=== PATIENT | male | born 1960 | race Caucasian/White ===

== ENCOUNTER 2020-09-03 17:26 | Emergency (ER) | payer BC, OTHER ==
[~2020-09-03] VITALS: Ht 170.2 cm; Wt 77.1 kg
[2020-09-03 17:59] LABS: BASOPHILS # (AUTO) 0.1 (0.0-0.1); BASOPHILS % 0.6 % (0.0-1.0); EOSINOPHILS # (AUTO) 0.1 (0.0-0.4); EOSINOPHILS % 0.5 % (0.0-6.0); HEMOGLOBIN 15.3 g/dL (14.0-18.0); LYMPHOCYTES # (AUTO) 1.6 (1.0-3.2); LYMPHOCYTES % 15.1 % (18.0-39.1); MEAN CORPUSCULAR HEMOGLOBIN 29.9 pg (28-32); MEAN CORPUSCULAR HGB CONC 33.3 g/dL (31-35); MEAN CORPUSCULAR VOLUME 89.8 fL (81-99); MONOCYTES # (AUTO) 0.6 (0.2-0.8); MONOCYTES % 5.9 % (4.4-11.3); NEUTROPHILS # (AUTO) 8.3 (2.1-6.9); NEUTROPHILS % 77.2 % (38.7-80.0); PLATELET COUNT 296 x10e3/uL (140-360); RED BLOOD COUNT 5.12 x10e6/uL (4.3-5.7); RED CELL DISTRIBUTION WIDTH 11.8 % (11.7-14.4)
[2020-09-03 18:20] LABS: ALANINE AMINOTRANSFERASE 28 IU/L (0-55); ALBUMIN 4.2 g/dL (3.5-5.0); ALBUMIN/GLOBULIN RATIO 1.3 (0.8-2.0); ALKALINE PHOSPHATASE 64 IU/L (40-150); BLOOD UREA NITROGEN 19 mg/dL (7-26); BUN/CREATININE RATIO 17 (6-25); CALCIUM 9.1 mg/dL (8.4-10.2); CARBON DIOXIDE 26 mmol/L (22-29); CHLORIDE 100 mmol/L (98-107); CREATININE, SERUM 1.15 mg/dL (0.72-1.25); EST GLOMERULAR FILTRATION RATE > 60 ML/MIN (60-); GLUCOSE 185 mg/dL (74-118); SODIUM 139 mmol/L (136-145)
[2020-09-03 19:51] LABS: INR 1.24; PROTHROMBIN TIME 16.4 seconds (11.9-14.5)
[2020-09-03] MEDS ORDERED: ASPIRIN 81 MG CHEW TAB PO ONE (20:45)
[2020-09-03] MEDS ORDERED: ASPIRIN 81 MG CHEW TAB ONE (20:54)
== END 2020-09-03 22:24 | disposition home or self-care (01) ==
LOC: ER 17:58
DX: R07.9 Chest pain, unspecified (principal); E78.5 Hyperlipidemia, unspecified; D68.59 Other primary thrombophilia; R94.31 Abnormal electrocardiogram [ECG] [EKG]
CPT/HCPCS: 36415; 71260; 80053; 83690; 83880; 84484; 85025; 85379; 85610; 93005; 99284